=== PATIENT | male | born 1975 | race Caucasian/White ===

== ENCOUNTER 2021-01-23 13:42 | Emergency (ER) | payer MEDICAID ==
[~2021-01-23] VITALS: Ht 180.3 cm; Wt 83.9 kg
--- NOTE | 2021-01-23 14:15 | NUR ---
HEAD INJURY, R SHOULDER PAIN S/P DIVING IN A 4FT POOL 1HR AGO. +ETOH PER FAMILY PT. PATIENT A/OX4, VERBALLY RESPONSIVE, PT STS HE DOVE IN AND HIT HIS HEAD ON THE BOTTOM POOL, WAS UNCONSCIOUS. AND IS NOW C/O RIGHT SHOULDER/ARM NUMBNESS.
--- NOTE | 2021-01-23 14:16 | NUR ---
PATIENT PLACED IN BED, PLACED ON A C-COLLAR (HARD)
--- NOTE | 2021-01-23 14:30 | NUR ---
DR. CAMPBELL AT BEDSIDE FOR EVAL.
--- NOTE | 2021-01-23 14:37 | NUR ---
Stanley king in [facility] - 01/23/21 at 1452 by ESHA PLACED PATIENT ON A C COLLAR.
[2021-01-23 14:39] LABS: BASOPHILS % (AUTO) 0.2 % (0.0-2.0); EOSINOPHILS % (AUTO) 1.6 % (0.0-6.0); HEMATOCRIT 41 % (39-51); HEMOGLOBIN 14.1 g/dL (13.5-17.5); LYMPHOCYTES # (AUTO) 1.9 K/uL (0.8-4.8); LYMPHOCYTES % (AUTO) 43.1 % (20.0-44.0); MEAN CORPUSCULAR HGB CONC 35 g/dl (31.0-36.0); MEAN CORPUSCULAR VOLUME 91 fL (80-96); MONOCYTES # (AUTO) 0.2 K/uL (0.1-1.30); MONOCYTES % (AUTO) 5.5 % (2.0-12.0); NEUTROPHILS # (AUTO) 2.2 K/uL (1.8-8.9); NEUTROPHILS % (AUTO) 49.6 % (43.0-81.0); PLATELET COUNT (AUTO) 252 K/uL (150-450); RED BLOOD CELL COUNT(AUTO) 4.46 MIL/uL (4.5-6.0); WHITE BLOOD COUNT (AUTO) 4.4 K/uL (4.3-11.0)
[2021-01-23 14:46] LABS: CALCIUM, SERUM 8.4 mg/dL (8.5-10.1); CREATININE 0.8 mg/dL (0.6-1.3); POTASSIUM 3.2 mmol/L (3.5-5.1)
--- NOTE | 2021-01-23 14:49 | NUR ---
PATIENT TAKEN TO CT FOR RADIOLOGY.
[2021-01-23 14:52] LABS: BILIRUBIN,DIRECT 0.1 mg/dL (0.0-0.2); BILIRUBIN,TOTAL 0.2 mg/dL (0.2-1.0); TOTAL PROTEIN, SERUM 7.8 g/dL (6.4-8.2)
--- NOTE | 2021-01-23 15:05 | NUR ---
PATIENT CAME BACK FROM CT. 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
[2021-01-23] MEDS ORDERED: IBUP-1957 PO (16:55)
[2021-01-23] MEDS ORDERED: ACETAMINOPHEN ES 500 MG TABLET ONE (17:10)
[2021-01-23] MEDS ORDERED: IBUPROFEN 400 MG TABLET ONE (17:10)
--- NOTE | 2021-01-23 17:17 | NUR ---
PATIENT A/OX4, BREATHING EVEN AND UNLABORED. C/O SHOULDER PAIN AND ARM PAIN. ABLE TO TOLERATE PO MEDICATIONS. AT BEDSIDE. HARD COLLAR REPLACED WITH A SOFT COLLAR. PATIENT'S VSS. NO DISTRESS NOTED. IV removed. Catheter intact and site benign. Pressure and 4x4 applied to site. No bleeding noted. Patient discharged to home in stable condition. Written and verbal after care instructions given. Patient verbalizes understanding of instruction.
[2021-01-23 17:20] VITALS: BP 138/87
[2021-01-23] MEDS ORDERED: IBUPROFEN 400 MG TABLET PO ONE (17:30)
[2021-01-23] MEDS ORDERED: ACETAMINOPHEN ES 500 MG TABLET PO ONE (17:30)
== END 2021-01-23 17:20 | disposition home or self-care (01) ==
LOC: ER 14:07
DX: S16.1XXA Strain of muscle, fascia and tendon at neck level, initial encounter (principal); S09.8XXA Other specified injuries of head, initial encounter; F10.129 Alcohol abuse with intoxication, unspecified; W22.8XXA Striking against or struck by other objects, initial encounter; Y93.12 Activity, springboard and platform diving; Y92.34 Swimming pool (public) as the place of occurrence of the external cause; Y99.8 Other external cause status; Y90.8 Blood alcohol level of 240 mg/100 ml or more
CPT/HCPCS: 36415; 70450; 71045; 72125; 80048; 80076; 80320; 85025; 93005; 99285; L0172; G0480